=== PATIENT | female | born 1965 | race Caucasian/White ===

== ENCOUNTER → 2017-09-03 | Day surgery (SDC) | payer MEDICARE ==
[~2017-09-03] MED LIST: BUPIVACAINE HCL 0.5% 10ML MPF VIAL INJ ONE; BUPROPION XL300 MG PO; CALCIUM PO; CLONAZEPAM1 MG PO; DEXAMETHASONE SOD PHOS INJ 4 MG/ML VIAL ONE; FENTANYL CITRATE/PF 100MCG/2 ML INJ ONE; FLUTICASONE PRO16 GM; GENTAMICIN 80MG/NS 100 ML 200 ML IV ONE; LIDOCAINE 1% W/EPINEPHRINE 20 ML VIAL ONE; LIDOCAINE HCL 2% LOCAL INJ 5 ML SDV VIAL INJ ONE; MIDAZOLAM HCL 2 MG/2 ML VIAL ONE; MUPIROCIN22 GM TOP; OMEPRAZOLE40 MG PO; ONDANSETRON HCL INJ 2 MG/ML VIAL ONE; OXYBUTYNIN CHLO15 MG PO; PROPOFOL IV EMULSION 10 MG/ML 20 ML VIAL ONE; RELPAX40 MG PO; SEVOFLURANE INHAL SOLN 250 ML PEN BTL ONE; TOPIRAMATE100 MG PO; TRAZODONE HCL150 MG PO; ULTRAM 50MG50 MG PO; VANCOMYCIN 1GM/NS 250 ML 250 ML ONE; VITAMIN C PO; VITAMIN D3 PO; ZADITOR5 ML OU
--- NOTE | 2017-11-07 06:48 | Operative Report ---
DATE OF PROCEDURE: September 03, 2017 PREOPERATIVE DIAGNOSIS: Refractory urge incontinence. POSTOPERATIVE DIAGNOSIS: Refractory urge incontinence. OPERATIONS PERFORMED: 1. Complete InterStim system implantation with incision and implantation of tined quadripolar lead electrodes into the left foramen S3. 2. Fluoroscopic guidance for needle placement. 3. Supervision of fluoroscopy, no radiologist present. 4. Subcutaneous implantation of sacral nerve neurostimulator. 5. Electronic analysis and complex programming. ANESTHESIA: General. COMPLICATIONS: None. CLINICAL SUMMARY: Ashley Vergara is a 52-year-old woman with refractory urge incontinence and significant nocturia. The patient underwent InterStim implantation in 2004. This InterStim implant was revised in 2012. The patient requested that it be removed in April of 2017 so that she may undergo MRI testing. Since then, the patient's incontinence as well as nocturia have worsened significantly, and she desired a new InterStim implant. She is aware of the risks of bleeding, infection, injury to adjacent structures, need for additional procedures, and the fact that she will not be able to undergo MRI testing with an InterStim in place. She understood all these risks and having had 3 prior InterStim operations is well aware of the various risks involved. She elected to proceed. OPERATIVE PROCEDURE IN DETAIL: Informed consent was verified. Ashley Vergara was properly identified, taken to the operating room and placed on the operating table in the prone position. Pillows were placed under the lower abdomen to flatten the sacrum and under the shins to allow the toes to dangle freely. All pressure points were carefully well padded. The patient's back and buttocks were prepared and draped in usual sterile fashion. Marcaine and lidocaine with epinephrine combination was utilized. A needle was introduced in the left foramen S3, and the depth of the needle was confirmed and adjusted fluoroscopically. Proper needle position was confirmed with direct observation of lifting of the perineum or "bellowing" and direct observation of plantarflexion of the great toe utilizing the test stimulator box. The needle stylette was then removed, and a directional guidewire was then placed and confirmed fluoroscopically. The foramen needle was then removed. An incision was then made peripherally to the directional guidewire, and the dilator and introducer sheath were then placed over the directional guidewire and directed into the foramen until the opaque marker of the dilator was seen midway through the sacrum. The dilator obturator was unlocked and removed and the lead was then placed through the introducer sheath to the first white line. Position was checked fluoroscopically. The lead was then further introduced until 3 electrodes were visible sacrum. Each electrode was tested for the findings mentioned above. Further incision was then made in the subcutaneous tissue posterior to the left iliac crest and a pocket was developed. Hemostasis was verified. The tunneling tube was then utilized to bring the lead from the lead incision to the pocket site. The lead was thoroughly cleansed of bodily fluids utilizing sterile water. It was then dried thoroughly. The lead was then placed into the InterSti pulse generator with the metal bands aligned and the blue lead tip clearly visible in the distal portion of the pulse generator header. The single set screw was tightened with a hex wrench. The pulse generator was then placed into the subcutaneous pocket after copiously irrigating both incisions. The programming head was then placed over the implanted neurostimulator and all impedance parameters were verified to be in acceptable limits for all leads. Both incisions were approximated with absorbable suture in 2 layers. Mastisol and Steri-Strips were applied. Bio-occlusive dressings were applied. The patient was then uneventfully reversed from anesthesia and taken to the recovery room in stable condition. There were no complications to the procedure. Patient tolerated the procedure well. Sponge, needle, and instrument counts were quoted as correct x2 at the end of the case. Estimated blood loss was minimal. Plan will be to follow the patient up on long-term basis. Utilizing the clinician cnc mill programmer, the patient was then programmed to the lead of optimum sensation and given explicit instructions on utilization of the patient cnc mill programmer prior to discharge. Job#: [id number]
== END | disposition home or self-care (01) ==
LOC: OR 10:16
PROVIDERS: ATTEND Urology
DX: N39.41 Urge incontinence (principal); R35.1 Nocturia; G47.33 Obstructive sleep apnea (adult) (pediatric); I10 Essential (primary) hypertension; E11.9 Type 2 diabetes mellitus without complications; J45.909 Unspecified asthma, uncomplicated; R53.1 Weakness; K58.9 Irritable bowel syndrome, unspecified; K44.9 Diaphragmatic hernia without obstruction or gangrene; F41.9 Anxiety disorder, unspecified; F32.9 Major depressive disorder, single episode, unspecified; Z88.1 Allergy status to other antibiotic agents; Z88.0 Allergy status to penicillin; Z91.040 Latex allergy status; Z01.810 Encounter for preprocedural cardiovascular examination; Z87.440 Personal history of urinary (tract) infections; Z87.891 Personal history of nicotine dependence
CPT/HCPCS: 64581; 64590; 95972; C1778; L8679; 76000; 93005; J1100; J1580; J2001; J2250; J2405; J3370

== ENCOUNTER → 2019-01-18 | Outpatient (CLI) | payer MEDICARE ==
[~2019-01-18] MED LIST changes: -BUPIVACAINE HCL 0.5% 10ML MPF VIAL INJ ONE; -DEXAMETHASONE SOD PHOS INJ 4 MG/ML VIAL ONE; -FENTANYL CITRATE/PF 100MCG/2 ML INJ ONE; -GENTAMICIN 80MG/NS 100 ML 200 ML IV ONE; -LIDOCAINE 1% W/EPINEPHRINE 20 ML VIAL ONE; -LIDOCAINE HCL 2% LOCAL INJ 5 ML SDV VIAL INJ ONE; -MIDAZOLAM HCL 2 MG/2 ML VIAL ONE; -ONDANSETRON HCL INJ 2 MG/ML VIAL ONE; -PROPOFOL IV EMULSION 10 MG/ML 20 ML VIAL ONE; -SEVOFLURANE INHAL SOLN 250 ML PEN BTL ONE; -VANCOMYCIN 1GM/NS 250 ML 250 ML ONE
--- NOTE | 2019-01-18 15:31 | Diagnostic Imaging Report ---
EXAM: Lumbar spine, 2 view, AP and supine lateral Sacrum, 2 view DATE: 01/18/2019 INDICATION: Evaluate implantable device positioning COMPARISON: None FINDINGS: A sacral neurostimulator device projects anterior to the sacrum at approximately the level of S4. No acute fracture. There are degenerative changes of the visualized lumbar spine and anterolisthesis at L4-5. Status post cholecystectomy. IMPRESSION: Neurostimulator device positioning as above. Signed by: Dustin Dia MD on 01/18/2019 3:27 PM
== END ==
LOC: RAD 14:04
PROVIDERS: ATTEND Urology
DX: T83.190A Other mechanical complication of urinary electronic stimulator device, initial encounter (principal)
CPT/HCPCS: 72100; 72220

== ENCOUNTER → 2020-03-29 | Day surgery (SDC) | payer MEDICARE ==
[~2020-03-29] MED LIST changes: +BELBUCA150 MCG PO; +CARVEDILOL6.25 MG PO; +COLACE100 MG PO; +COMBIVENT RESPIM4 GM IH; +DEXAMETHASONE SOD PHOS INJ 4 MG/ML VIAL ONE; +FENTANYL CITRATE/PF 100MCG/2 ML INJ ONE; +GENTAMICIN 80MG/NS 100 ML 200 ML IV ONE; +HERB LAX PO; +HYDROCHLOROTH12.5 MG PO; +JARDIANCE10 MG PO; +LEVOFLOXACIN 250MG/D5W 50ML 50 ML ONE; +LEVOFLOXACIN 500MG/D5W 100ML 100 ML IV ONE; +LIDOCAINE HCL 2% LOCAL INJ 5 ML SDV VIAL INJ ONE; +MIDAZOLAM HCL 2 MG/2 ML VIAL ONE; +MURO-12815 M1 OP; +ONDANSETRON HCL INJ 2MG/ML 2ML 2 MG/ML VIAL ONE; +PROPOFOL IV EMULSION 10 MG/ML 20 ML VIAL ONE; +PROTONIX20 MG PO; +ROBAXIN-750750 MG PO; +SEVOFLURANE INHAL SOLN 250 ML PEN BTL ONE; +SUCCINYLCHOLINE CHLORIDE 20 MG/ML 10ML VIAL ONE; +VIIBRYD40 MG PO
--- NOTE | 2020-03-29 11:16 | Diagnostic Imaging Report ---
EXAMINATION: CHEST 2 VIEWS INDICATION: Pre-operative COMPARISON: None FINDINGS: LINES/TUBES:None LUNGS:The lungs are well-inflated. No focal consolidation or pulmonary edema. PLEURA:No pleural effusion or pneumothorax. MEDIASTINUM:The cardiomediastinal silhouette appears normal in size and shape. BONES/SOFT TISSUES:No acute osseous injury. ABDOMEN:No free air under the diaphragm. IMPRESSION: No focal pneumonia or pulmonary edema. Signed by: Dustin Dai MD on 03/29/2020 11:12 AM
[2020-03-29 14:55] VITALS: BP 160/89
--- NOTE | 2020-04-10 05:42 | Operative Report ---
DATE OF PROCEDURE: 03/29/2020 SURGEON: Red Oconnor MD PREOPERATIVE DIAGNOSIS: Refractory urge incontinence. POSTOPERATIVE DIAGNOSIS: Refractory urge incontinence. OPERATION PERFORMED: 1. Removal of old InterStim generator, replaced with the new MRI compatible generator. 2. Explantation of old InterStim electrode array. 3. Incision and implantation of tined quadripolar new lead electrodes into the foramen S3 (MRI compatible). 4. Fluoroscopic guidance for needle placement. 5. Subcutaneous electronic analysis for complex programming. ANESTHESIA: General. COMPLICATIONS: None. CLINICAL SUMMARY: Ashley Vergara is a 55-year-old woman with an InterStim implant for refractory urge incontinence. The patient's implant has run out of battery. She was brought for replacement. The patient elects to proceed with an MRI compatible implant. She is aware of the risks of bleeding, infection, injury to adjacent structures, need for additional procedures, and elected to proceed. OPERATIVE PROCEDURE IN DETAIL: Informed consent verified. Ashley Vergara was properly identified and taken to the operating room. Anesthesia was uneventfully begun. She was then carefully and gently repositioned in the prone position with all pressure points carefully well padded. Her back, neck, and buttocks were prepared and draped in usual sterile fashion and the needle was introduced into the right S3 foramen and multiple times were made to isolate this for and these were unsuccessful on the right-hand side. We then made incision over the old generator, dissected down to the generator, was removed and disconnected from the old lead. We then made an incision overlying the old lead and delivered that lead. Following this, we gently placed traction until the old lead was dislodged and it was removed. The needle was then introduced into the left foramen S3. Depth of needle was confirmed and adjusted fluoroscopically. Proper needle position was confirmed by plantar flexion of the great toe and bellowing of the perineum. The needle stylet was then removed and directional guidewire was then placed and confirmed fluoroscopically. The foramen needle was then removed and dilator and introducer sheath were then placed over the directional guidewire and directed into the foramen until the opaque marker of the dilator was seen midway through the sacrum. The obturator was then unlocked and removed and the lead was then placed through the introducer sheath. It was then positioned with fluoroscopic assistance until we had 3 electrodes visible anterior to the sacrum and 1 electrode straddling the sacral anterior margin. Each electrode was then tested for the same response. After satisfactory positioning was confirmed under continuous fluoroscopy, the introducer sheath was retracted thus deploying lead tines into the parasacral tissue. We then again tested the electrodes and all 4 electrodes were worked properly. We then utilized the tunneling tool to bring the lead into the pocket site. The lead was then cleansed of all bodily fluids with sterile water and was then placed into the new InterStim generator until the blue tip was seen in the distal portion of the pulse generator header indicating all leads were aligned. The single set screw was then tightened with hex wrench. Copious irrigation was performed of all incisions and local anesthetic was infiltrated throughout all the incisions. The pulse generator was then placed into the subcutaneous pocket and the programming head was then placed over the implanted neurostimulator. All impedance parameters were appropriate. We then approximated all incisions in 2 layers utilizing absorbable sutures. Sterile dressings were applied and the patient was then uneventfully reversed from anesthesia, taken to recovery in stable condition with no complications throughout the procedure. The patient tolerated the procedure well. Sponge, needle, and instrument counts were correct x2 at the end of the case. Estimated blood loss was minimal. Utilizing the clinician program, the patient was then programmed to the lead of optimum sensation and given explicit instructions in utilization of her new equipment. Plans will be to follow the patient up in several weeks to perform impedance test and reprogramming as necessary. Red Oconnor MD [place]/[facility] /[id number]
== END | disposition home or self-care (01) ==
LOC: OR 08:24
PROVIDERS: ATTEND Urology
DX: Z45.49 Encounter for adjustment and management of other implanted nervous system device (principal); N39.46 Mixed incontinence; N39.0 Urinary tract infection, site not specified; R35.1 Nocturia; N32.81 Overactive bladder; N39.44 Nocturnal enuresis; R81 Glycosuria; G47.33 Obstructive sleep apnea (adult) (pediatric); J45.909 Unspecified asthma, uncomplicated; I10 Essential (primary) hypertension; E11.9 Type 2 diabetes mellitus without complications; E66.9 Obesity, unspecified; K21.9 Gastro-esophageal reflux disease without esophagitis; K44.9 Diaphragmatic hernia without obstruction or gangrene; R00.1 Bradycardia, unspecified; Z88.6 Allergy status to analgesic agent; Z88.1 Allergy status to other antibiotic agents; Z88.2 Allergy status to sulfonamides; Z91.041 Radiographic dye allergy status; Z91.012 Allergy to eggs; Z91.040 Latex allergy status; Z88.0 Allergy status to penicillin; Z91.048 Other nonmedicinal substance allergy status; Z68.43 Body mass index [BMI] 50.0-59.9, adult; Z84.1 Family history of disorders of kidney and ureter
CPT/HCPCS: 36415; 64581; 64590; 71046; 76000; 82948; 88300; 93005; 95972; C1776; C1787; J0330; J1100; J1580; J1956 ×2; J2001; J2250; J2405; J2704; J3010; L8679

== ENCOUNTER → 2022-02-06 | Day surgery (SDC) | payer MEDICARE ==
[2022-02-04 12:02] LABS: BASOPHILS # (AUTO) 0.1 (0.0-0.1); BASOPHILS % 0.5 % (0.0-1.0); EOSINOPHILS # (AUTO) 0.1 (0.0-0.4); HEMATOCRIT 37.6 % (34.2-44.1); HEMOGLOBIN 10.5 g/dL (12.0-16.0); LYMPHOCYTES % 16.2 % (18.0-39.1); MEAN CORPUSCULAR HGB CONC 27.9 g/dL (31-35); MEAN CORPUSCULAR VOLUME 75.4 fL (81-99); MONOCYTES # (AUTO) 0.7 (0.2-0.8); MONOCYTES % 5.7 % (4.4-11.3); NEUTROPHILS # (AUTO) 9.6 (2.1-6.9); NEUTROPHILS % 76.1 % (38.7-80.0); PLATELET COUNT 399 x10e3/uL (140-360); RED BLOOD COUNT 4.99 x10e6/uL (3.6-5.1); RED CELL DISTRIBUTION WIDTH 18.9 % (11.7-14.4)
[2022-02-04 12:32] LABS: ANION GAP 14.6 mmol/L (8-16); CALCIUM 9.3 mg/dL (8.4-10.2); CREATININE, SERUM 0.9 mg/dL (0.57-1.11); POTASSIUM 3.6 mmol/L (3.5-5.1)
[~2022-02-06] MED LIST changes: +ASPIRIN81 MG PO; +BUPIVACAINE HCL 0.25% 10ML MPF VIAL INJ ONE; +BUPROPION XL150 MG PO; +BUSPIRONE HCL5 MG PO; +BUTALB-ACETAMI1 EACH; +CETIRIZINE HCL10 M1; +CIPRO500 MG PO; -COMBIVENT RESPIM4 GM IH; +COMBIVENT RESPIM4 GM NEB; -DEXAMETHASONE SOD PHOS INJ 4 MG/ML VIAL ONE; +FUROSEMIDE40 MG PO; +HYOSCYAMINE0.375 MG PO; +IRON PO; +JARDIANCE10 MG; +LACTULOSE20 GM/30 M PO; -LEVOFLOXACIN 250MG/D5W 50ML 50 ML ONE; +LIDOCAINE 2% /EPINEPHRINE 20 ML SDV INJ ONE; +MONTELUKAST SOD10 MG PO; +ONDANSETRON ODT8 MG PO; +POTASSIUM CHLO10 ME1 PO; +POVIDONE IODINE 0.05% 0.05 % ML PO ONE; +SERTRALINE HCL100 MG PO; +TRIMETHOPRIM100 MG; +VICODIN HP 10-1 EAC1 PO
[2022-02-06 13:33] VITALS: BP 150/80
== END | disposition home or self-care (01) ==
LOC: OR 09:18
PROVIDERS: ATTEND Urology
DX: T85.113A Breakdown (mechanical) of implanted electronic neurostimulator, generator, initial encounter (principal); N39.41 Urge incontinence; G47.33 Obstructive sleep apnea (adult) (pediatric); J44.9 Chronic obstructive pulmonary disease, unspecified; I10 Essential (primary) hypertension; E66.01 Morbid (severe) obesity due to excess calories; K21.9 Gastro-esophageal reflux disease without esophagitis; E11.9 Type 2 diabetes mellitus without complications; Y83.8 Other surgical procedures as the cause of abnormal reaction of the patient, or of later complication, without mention of misadventure at the time of the procedure; Z01.810 Encounter for preprocedural cardiovascular examination; Z01.812 Encounter for preprocedural laboratory examination; Z01.818 Encounter for other preprocedural examination; Z20.822 Contact with and (suspected) exposure to COVID-19; Z79.82 Long term (current) use of aspirin; Z79.84 Long term (current) use of oral hypoglycemic drugs; Z79.899 Other long term (current) drug therapy; Z99.81 Dependence on supplemental oxygen
CPT/HCPCS: 0223U; 36415 ×2; 64581; 64590; 71046; 74420; 80048; 82948; 85025; 88300; 93005; 95972; C1713; C1778; C1787; J0330; J1580; J1956; J2001 ×2; J2250; J2405; J2704; J3010

== ENCOUNTER → 2024-06-12 | Day surgery (SDC) | payer MEDICARE ==
[~2024-06-12] MED LIST changes: +ACETAMINOPHEN 1000 MG/100 ML 100 ML IV ONE; +ALEVE220 MG; +B COMPLEX PO; -BUPIVACAINE HCL 0.25% 10ML MPF VIAL INJ ONE; +CYCLOBENZAPRINE10 MG PO; +DEXAMETHASONE SOD PHOS INJ 4 MG/ML SDV ONE; +DICYCLOMINE HCL20 MG PO; +EPHEDRINE SULFATE INJ 50 MG/ML VIAL ONE; +FAMOTIDINE 20 MG/2 ML VIAL IV ONE; +FLUCONAZOLE100 MG PO; -GENTAMICIN 80MG/NS 100 ML 200 ML IV ONE; +HYDROMORPHO1 MG/1 ML IV; -LEVOFLOXACIN 500MG/D5W 100ML 100 ML IV ONE; -LIDOCAINE 2% /EPINEPHRINE 20 ML SDV INJ ONE; +MONISTAT 745 GM TOP; +PHENYLEPHRINE HCL 1% 10 MG/ML VIAL ONE; -POVIDONE IODINE 0.05% 0.05 % ML PO ONE; +REMERON30 MG PO; -SEVOFLURANE INHAL SOLN 250 ML PEN BTL ONE; +SODIUM CHLORIDE 0.9% 100 ML ONE; -SUCCINYLCHOLINE CHLORIDE 20 MG/ML 10ML VIAL ONE; +ZYRTEC10 M3
[2024-06-12] MEDS: LACTATED RINGER'S 1,000 ML ONE (13:09)
[2024-06-12] MEDS: GENTAMICIN 80MG/NS 100 ML 200 ML IV ONE (13:09)
[2024-06-12 13:15] LABS: BASOPHILS # (AUTO) 0.1 (0.0-0.1); BASOPHILS % 0.8 % (0.0-1.0); EOSINOPHILS # (AUTO) 0.2 (0.0-0.4); EOSINOPHILS % 1.8 % (0.0-6.0); HEMATOCRIT 35.4 % (34.2-44.1); HEMOGLOBIN 10.1 g/dL (12.0-16.0); LYMPHOCYTES # (AUTO) 1.8 (1.0-3.2); LYMPHOCYTES % 20.7 % (18.0-39.1); MEAN CORPUSCULAR HEMOGLOBIN 21.9 pg (28-32); MEAN CORPUSCULAR HGB CONC 28.5 g/dL (31-35); MEAN CORPUSCULAR VOLUME 76.8 fL (81-99); MONOCYTES # (AUTO) 0.4 (0.2-0.8); MONOCYTES % 4.7 % (4.4-11.3); NEUTROPHILS # (AUTO) 6.3 (2.1-6.9); NEUTROPHILS % 71.4 % (38.7-80.0); PLATELET COUNT 354 x10e3/uL (140-360); RED BLOOD COUNT 4.61 x10e6/uL (3.6-5.1)
[2024-06-12 13:39] LABS: ANION GAP 14.7 mmol/L (8-16); CALCIUM 9.7 mg/dL (8.4-10.2); CREATININE, SERUM 1.23 mg/dL (0.57-1.11); POTASSIUM 3.7 mmol/L (3.5-5.1)
[2024-06-12 16:55] VITALS: BP 148/88; PULSE 65; RESP 18; O2SAT 95
== END | disposition home or self-care (01) ==
LOC: OR 12:15
PROVIDERS: ATTEND Urology
DX: R33.9 Retention of urine, unspecified (principal); N39.0 Urinary tract infection, site not specified; E11.22 Type 2 diabetes mellitus with diabetic chronic kidney disease; I12.9 Hypertensive chronic kidney disease with stage 1 through stage 4 chronic kidney disease, or unspecified chronic kidney disease; N18.9 Chronic kidney disease, unspecified; N81.6 Rectocele; N95.2 Postmenopausal atrophic vaginitis; N32.89 Other specified disorders of bladder; R81 Glycosuria; N32.81 Overactive bladder; N39.41 Urge incontinence; R35.1 Nocturia; N81.89 Other female genital prolapse; R39.14 Feeling of incomplete bladder emptying; R39.16 Straining to void; J45.909 Unspecified asthma, uncomplicated; Z68.41 Body mass index [BMI] 40.0-44.9, adult; Z87.891 Personal history of nicotine dependence; Z84.1 Family history of disorders of kidney and ureter
CPT/HCPCS: 36415; 51040; 71046; 74420; 80048; 85025; 87086; 87186; 93005; C1758; J0131; J1100; J1580; J2003; J2250; J2371; J2405; J2704; J3010; J7050; J7121

== ENCOUNTER 2024-06-30 14:47 | Emergency (ER) | payer MEDICARE ==
[~2024-06-30] VITALS: Ht 152.4 cm; Wt 131.5 kg
[~2024-06-30 14:47] MED LIST changes: -ACETAMINOPHEN 1000 MG/100 ML 100 ML IV ONE; -DEXAMETHASONE SOD PHOS INJ 4 MG/ML SDV ONE; -EPHEDRINE SULFATE INJ 50 MG/ML VIAL ONE; -FAMOTIDINE 20 MG/2 ML VIAL IV ONE; -FENTANYL CITRATE/PF 100MCG/2 ML INJ ONE; -FLUCONAZOLE100 MG PO; -LIDOCAINE HCL 2% LOCAL INJ 5 ML SDV VIAL INJ ONE; -MIDAZOLAM HCL 2 MG/2 ML VIAL ONE; -MONISTAT 745 GM TOP; -ONDANSETRON HCL INJ 2MG/ML 2ML 2 MG/ML VIAL ONE; -PHENYLEPHRINE HCL 1% 10 MG/ML VIAL ONE; -PROPOFOL IV EMULSION 10 MG/ML 20 ML VIAL ONE; -SODIUM CHLORIDE 0.9% 100 ML ONE
[2024-06-30] MEDS ORDERED: FLUCONAZOLE100 MG PO (15:59)
[2024-06-30] MEDS ORDERED: MONISTAT 745 GM TOP (15:59)
[2024-06-30 16:06] VITALS: PULSE 70; RESP 16; TEMP 98.8; O2SAT 92
== END 2024-06-30 16:07 | disposition home or self-care (01) ==
LOC: ER 15:09
DX: B48.8 Other specified mycoses (principal)
CPT/HCPCS: 87086; 87186; 99283